=== PATIENT | female | born 1985 | race Asian ===

== ENCOUNTER 2021-01-30 13:29 | Emergency (ER) | payer MEDICAID ==
[~2021-01-30] VITALS: Ht 175.3 cm; Wt 64.6 kg
[~2021-01-30 13:29] MED LIST: PHEN-786 PO
[2021-01-30 14:14] VITALS: BP 120/97
[2021-01-30] MEDS ORDERED: IBUP-1984 PO (17:16)
== END 2021-01-30 17:30 | disposition home or self-care (01) ==
LOC: ER 13:29
DX: M79.662 Pain in left lower leg (principal); M79.661 Pain in right lower leg; G89.29 Other chronic pain; F17.210 Nicotine dependence, cigarettes, uncomplicated; Z72.89 Other problems related to lifestyle; Z79.899 Other long term (current) drug therapy
CPT/HCPCS: 93971; 99284

== ENCOUNTER 2025-07-22 23:41 | Emergency (ER) | payer MEDICAID ==
[~2025-07-22] VITALS: Ht 177.8 cm; Wt 95.0 kg
[2025-07-22] MEDS: normal saline 1000ML IV soln IVB ONE (23:56)
--- NOTE | 2025-07-23 00:25 | Physician Documentation ---
History of Present Illness ~ Chief Complaint: ETOH Stated Complaint: ETOH Time Seen by MD: 23:44 Primary Medical Doctor: None HPI This is a 40-year-old female who was brought in by the [place] police Department for evaluation of alcohol intoxication. The patient evidently got out of the car of the stents still. She was too drunk to get in the car independently. Her family failed to get her back in the car. The patient was a passenger of a vehicle, driven by her daughter. Patient admits to alcohol intoxication. She was walking with a unsteady gait. She was brought in for medical evaluation by the police. At the time of my examination patient has a no somatic complaints. She does require significant sternal rub to wake up and communicate, however she states I am good, I am good. History, review of systems, physical examination is somewhat limited due to patient's level of intoxication. Tetanus within 5 years?: Yes Medication Reconciliation Allergies: Coded Allergies: No Known Allergies (Unverified , 07/15/11) Scheduled PRN Phenazopyridine Hcl (Pyridium tablet), 1 TAB PO Q8H PRN for bladder spasms Past Medical History Past Medical History: Chronic Back Pain Past Surgical History: no surgical history Alcohol Use: Sober Drug Use: none Lives with: Family Lives In: Home Occupation: employed Review of Systems ROS Limited as above Physical Exam Vital Signs: Temperature: 97.6, Source: Oral, Heart Rate: 83, Respiratory Rate: 15, BP: 87/52, Pulse Oximetry: 96, Weight: 190.000 Physical Exam GENERAL: Asleep but wakes up to sternal rub, no apparent distress, non-toxic appearing, answers questions to the best of her ability, follows commands to the best of her ability. Examined in room five, placed in room 13. HEENT: Atraumatic, normocephalic, pupils equal, extraocular muscles intact, sclerae anicteric, mucus membranes moist, oropharynx is clear, no stridor. NECK: supple, full active range of motion, trachea midline, no thyromegaly, no lymphadenopathy, no JVD. CARDIOVASCULAR: regular rate/rhythm, no murmurs/gallops/rubs, Pulses are 2+ in all extremities and symmetric. Capillary refill less than 2 seconds. PULMONARY: Nonlabored, good air movement ,no respiratory distress, speaking in full sentences, clear to auscultation bilaterally, no wheezing, no ronchi, no rales, no accessory muscle use. GASTROINTESTINAL: Soft, non-tender, non-distended, normal active bowel sounds, no organomegaly, no pulsatile masses, no CVA tenderness. NEUROLOGIC: Lucid with normal mental status. Normal facial symmetry. Moves all extremities symmetrically and with purpose. No truncal ataxia. Speech is fluid without evidence of dysarthria or aphasia, no focal deficits appreciated. Currently protecting her airway. MUSCULOSKELETAL: There is full range of motion of all extremities. There is no joint pain or joint swelling or joint erythema. There is no muscle pain or tenderness or swelling. EXTREMITIES: warm, well-perfused, no cyanosis, no clubbing, no edema, no acute deformities. Skin: warm, dry, no rashes or lesions, no jaundice, no petechiae orpurpura. No ecchymosis. PSYCHIATRIC: Unable to assess Progress Results/Orders Results/Orders Orders - DANN LOPEZ DO Drug Screen, Urine (07/22/25 23:44) Monitor (07/22/25 23:44) Saline Lock (07/22/25 23:44) Normal Saline 1000ml (0.9% Sodium Chlori (07/23/25 01:30) Completed Orders - DANN LOPEZ DO Ethanol (07/22/25 23:44) Hcg Serum Ql (07/22/25 23:44) Cbc/Diff (07/22/25 23:44) MG (07/22/25 23:44) Normal Saline 1000ml (0.9% Sodium Chlori (07/22/25 23:45) Hs Troponin I W Calculations (07/22/25 23:44) CMP (07/22/25 23:44) Medications Received in ER Medications (Trade) Dose Ordered Sig/Austen Route PRN Reason Start Time Stop Time Status Last Admin Dose Admin (0.9% sodium chloride (NS) 1000ml IV soln) 1,000 ml ONCE ONCE IVB 07/22/25 23:45 07/22/25 23:46 DC 07/22/25 23:56 1,000 ML Sodium Chloride 1,000 ml @ 1,000 mls/hr ONCE ONCE IV 07/23/25 01:30 07/23/25 02:29 07/23/25 01:28 1,000 MLS/HR Vital Signs 07/22/25 07/23/25 07/23/25 23:51 01:06 01:12 Temp 97.6 97.6 Pulse 83 88 Resp 15 8 17 B/P (MAP) 87/52 93/63 (73) Pulse Ox 96 96 Laboratory Tests Test 07/23/25 00:23 White Blood Count 8.2 Red Blood Count 5.07 Hemoglobin 11.8 L Hematocrit 37.3 Mean Corpuscular Volume 73.6 L Mean Corpuscular Hemoglobin 23.4 L Mean Corpuscular Hemoglobin Concent 31.7 L Red Cell Distribution Width 14.5 Platelet Count 134 L Mean Platelet Volume 11.1 H Neutrophils (%) (Auto) 65.8 Lymphocytes (%) (Auto) 27.0 Monocytes (%) (Auto) 6.5 Eosinophils (%) (Auto) 0.4 Basophils (%) (Auto) 0.3 Neutrophils # (Auto) 5.4 Lymphocytes # (Auto) 2.2 Monocytes # (Auto) 0.5 Eosinophils # (Auto) 0.0 Basophils # (Auto) 0.0 CBC Comment Sodium Level 146 H Potassium Level 3.0 *L Chloride Level 111 H Carbon Dioxide Level 20.5 L Anion Gap 15 Blood Urea Nitrogen 14 Creatinine 0.94 H Estimated GFR/1.73 m2 66 BUN/Creatinine Ratio 14.9 Glucose Level 125 H Calcium Level 8.7 Magnesium Level 2.3 Total Bilirubin 0.3 Aspartate Amino Transf (AST/SGOT) 16 Alanine Aminotransferase (ALT/SGPT) 15 Alkaline Phosphatase 76 Troponin I High Sensitivity 4 Total Protein 7.4 Albumin 3.7 Globulin 3.7 Albumin/Globulin Ratio 1.0 L Human Chorionic Gonadotropin, Qual Negative Chemistry Comments Ethyl Alcohol Level 242 H Medical Decision Making Findings Facility Status: ED Holds, [facility] process The plan was discussed with the patient, who demonstrates clear understanding of the plan and is in agreement with the plan unless otherwise noted in the chart. All questions have been answered, all concerns were addressed unless otherwise documented. I was available throughout their ED stay for frequent reassessment and questions. Differential Diagnoses (considered and possible or likely): [Alcohol intoxication, alcohol abuse, drug toxidrome, less likely acute somatic process.] ??Differential Diagnoses (considered and unlikely, not requiring evaluation currently): [No evidence of traumatic injury at this time] MDM Data Please see HPI for the following: Independent Historians and external Records Review. Historian: [Patient] Independent Historians: ?[[place] police [employer] officer, record review] Medication Management: [Reviewed medication list] Social History and determinants: [Reviewed] Please see the body of the note for the following: Any independent interpretations of ECG, imaging studies. All vitals signs/haemodynamics, ordered tests were independently reviewed and interpreted by myself. Nursing triage complaint and vitals reviewed, additional nursing notes were reviewed as available and I agree unless otherwise noted or documented in contradiction in the chart Vital Signs: Independently reviewed Labs: Independently interpreted Imaging: Independently interpreted Old Medical Records: Independently reviewed, see HPI for relevant summary and information Pulse Oximetry: [97%] interpreted as [normal on room air] by me [Psych Np: [Regular Rate, Regular rhythm, no ectopy, NSR] reviewed and interpreted by me] Additionally notably showing: [Hemodynamically stable. Ethanol is markedly elevated to 42, the lady is drunk. Mild hypokalemia noted. Potassium was replaced.] Tests considered but not ordered include: [Patient denies any trauma has not no evidence of trauma. Does not require advanced imaging with the head.] Social Determinants of Health Impact: Patient was evaluated in [facility], or [facility] [place] to healthcare due to below par ratio of patient to medical providers. [] Comorbid Conditions Impacting Present Evaluation and Care/Treatment: [Alcohol abuse] Management Discussions with other Healthcare Providers: [None] Treatment and Disposition Medication Management (Given or considered): [Fluid resuscitation was provided for treatment of clinically and/or laboratory apparent dehydration.]. See EMR for details Consideration for Hospitalization/Escalation/Deescalation of Care: Admission for observation has been considered, [however the patient is able to tolerate p.o., their symptoms are controlled, they are able to rely on oral medications, and their chief complaint/diagnosis can be managed on outpatient basis.] ?ED Course:?[Date: Jul 23, 2025 Time: 02:24 the patient is acting more sober. Was able to talk and a fallen with a relative. Patient will be allowed to metabolize to clinical sobriety, and will be discharged with a sober family member/ride. ] ?Shared decision making:?[Patient is hemodynamically stable for discharge home with follow with their primary care provider. [ ] Specific and cautious return precautions provided and discussed with full understanding. Any incidental findings were also discussed and follow up recommendations given. [] All questions answered. Patient/family were able to verbalize back return precautions. Patient/family agree to plan. Copies of imaging and laboratory studies were provided.] Code status:?FULL Please see the full Electronic Medical Record for full details of nursing documentation, medications list, other records of complete past medical history and conditions, vital signs, laboratory studies, and any radiologic study inte rpretations by radiologists. Portions of this note were completed using [employer] dictation software and as a result there may exist minor errors in spelling. I have reviewed elements of past family and social history and agree as included in note. Departure Impression: Primary Impression: Alcoholic intoxication Condition: Improved Discharge Instructions: Alcohol Intoxication Additional Instructions: Please monitor your alcohol consumption, as it clearly negatively affects your life. Referrals: NO PRIMARY CARE PROVIDER (PCP) Education Educated: Patient Educated regarding: diagnosis, treatment, prognosis, need for follow up Signature Scribe Signature: No scribe Attestation: Date: Jul 23, 2025 Time: 00:24 This note accurately reflects clinical decisions, work performed by myself, Dann Lopez, DANN EMANUEL DO Jul 23, 2025 00:24
[2025-07-23 00:41] LABS: MEAN PLATELET VOLUME 11.1 FL (7.4-10.4); RED CELL DISTRIBUTION WIDTH 14.5 % (11.5-14.5)
[2025-07-23 00:58] LABS: CREATININE 0.94 MG/DL (0.40-0.90); ETHANOL 242 MG/DL (<10); TOTAL CARBON DIOXIDE 20.5 MMOL/L (24-32); eCRCL 85 ML/MIN; eGFR 66 ML/MIN
[2025-07-23 01:28] LABS: HCG SERUM QL NEGATIVE
[2025-07-23] MEDS: normal saline 1000ml 1,000 ML IV ONE (01:28)
[2025-07-23] MEDS: potassium bicarbonate/cit acid 25mEq tablet.effervescent PO SCH (03:17)
[2025-07-23] MEDS: ondansetron 4mg rapidly disintigrating tab PO ONE (04:08)
[2025-07-23 04:26] VITALS: BP 124/83; PULSE 82; RESP 16; TEMP 97.6; O2SAT 96
== END 2025-07-23 04:28 | disposition home or self-care (01) ==
LOC: ER 23:41
DX: F10.129 Alcohol abuse with intoxication, unspecified (principal); Z79.899 Other long term (current) drug therapy; Y90.9 Presence of alcohol in blood, level not specified
CPT/HCPCS: 36415; 80053; 80320; 83735; 84484; 84703; 85025; 96360; 96361; 99284; J7030